=== PATIENT | male | born 1995 | race African-American/Black ===

== ENCOUNTER 2023-05-13 16:56 | Emergency (ER) | payer BC, SELFPAY ==
--- NOTE | ~2023-05-13 | CT_ITS ---
EXAMINATION: CT abdomen pelvis w con DATE: 05/13/2023 19:17 INDICATION: Abdominal pain, nausea and diarrhea TECHNIQUE: Computed tomography (CT) of the abdomen and pelvis was performed with 100 mL Omnipaque-350 intravenous contrast. Automated exposure control and iterative reconstruction technique were employe d. The dose-length product was 1139.05 mGy-cm. COMPARISON: None FINDINGS: Lung bases are clear. Heart size is normal. No pericardial or pleural effusion. Liver, gallbladder, s pleen, pancreas, bilateral adrenal glands and kidneys are normal. Appendix is normal. There is fluid scattered throughout much of the central small bowel without bria dilation and without discrete zambrano sition point to suggest obstruction which could be seen with an ileus or gastroenteritis. No abnormal bowel wall thickening. Bladder is normal. No free intraperitoneal gas or fluid. No pathologically en larged abdominal or pelvic lymphadenopathy. Bones are unremarkable. IMPRESSION: 1. Fluid throughout multiple nondilated loops of small bowel which could be related to ileus or gastr oenteritis. Reviewed, dictated and finalized at location A. RIDE OPERATOR IMPRESSION: 1. Fluid throughout multiple nondilated loops of small bowel which could be rel ated to ileus or gastroenteritis.
[2023-05-13 17:03] VITALS: BP 161/92; PULSE 97; RESP 18; TEMP 36.8; O2SAT 100
[2023-05-13 17:38] LABS: Basophils Percent Auto 0.3 % (0.2-1.2); Eosinophils Absolute Auto 0.2 K/mm3 (0-0.3); Hematocrit 53.9 % (42.0-52.0); Hemoglobin 16.9 g/dL (14.0-18.0); Immature Granulocyte Absolute 0.02 K/mm3 (0.00-0.031); Immature Granulocyte Percent A 0.2 % (0-0.5); Lymphocytes Absolute Auto 1.63 K/mm3 (0.9-3.2); Lymphocytes Percent Auto 17.2 % (18.3-44.2); Mean Corpuscular HGB Conc 31.4 g/dl (32-36); Mean Corpuscular Hemoglobin 28.2 pg (26-34); Mean Platelet Volume 9.3 fl (7.4-10.4); Monocytes Absolute Auto 0.6 K/mm3 (0.1-0.6); Monocytes Percent Auto 6.7 % (2.6-8.5); Neutrophils Percent Auto 73.6 % (45.5-73.1); Platelet Count Result 257 k/mm3 (150-375); Red Blood Count 5.99 M/mm3 (4.6-6.20); Red Cell Distribution Width 12.5 % (11.5-14.5); White Blood Count 9.5 K/mm3 (4.5-10.0)
[2023-05-13 17:48] LABS: Alanine Aminotransferase 51 U/L (6-50); Alkaline Phosphatase 101 U/L (38-126); Anion Gap 10 mmol/L (8-16); Aspartate Amino Transferase 37 U/L (17-59); Blood Urea Nitrogen 11 mg/dL (9-20); Calcium 9.8 mg/dL (8.4-10.2); Carbon Dioxide 26 mmol/L (22-30); Chloride 101 mmol/L (98-107); Estimated CRCL calculation 119 ml/min; Estimated Glomerular Filt Rate > 60; Glucose 103 mg/dL (65-110); Lipase 57 U/L (23-300); Potassium 4.1 mmol/L (3.4-5.0); Sodium 137 mmol/L (137-145)
--- NOTE | 2023-05-13 18:38 | ED.ABDPAIN ---
HPI - Abdominal Pain General Chief Complaint: Abdominal Pain <Edelmira Allen PA-C - Last Filed: 05/14/23 09:15> Stated Complaint: abd pain <Edelmira Allen PA-C - Last Filed: 05/14/23 09:15> Time Seen by Provider: 05/13/23 21:06 <Edelmira Allen PA-C - Last Filed: 05/14/23 09:15> Source: patient <Edelmira Allne PA-C - Last Filed: 05/14/23 09:15> Mode of arrival: ambulatory <Edelmira Allen PA-C - Last Filed: 05/14/23 09:15> Limitations: no limitations <Edelmira Allen PA-C - Last Filed: 05/14/23 09:15> History of Present Illness HPI narrative: This is a 28 year old male that presents to the ER for abdominal pain and nausea. Ongoing since this afternoon. Also reports some diarrhea. Denies fever or vomiting. <Edelmira Allen PA-C - Last Filed: 05/14/23 09:15> Related Data Allergies/Adverse Reactions: Allergies Allergy/AdvReac Type Severity Reaction Status Date / Time No Known Allergies Allergy Verified 05/13/23 17:03 <Edelmira Allen PA-C - Last Filed: 05/14/23 09:15> Review of Systems Review of Systems: CONSTITUTIONAL: Denies fever GASTROINTESTINAL: Reports abdominal pain, nausea, and diarrhea. Denies vomiting <Edelmira Allen PA-C - Last Filed: 05/14/23 09:15> All systems reviewed & are unremarkable except as noted in HPI and below <Edelmira Allen PA-C - Last Filed: 05/14/23 09:15> [facility] Past Medical History Medical History: Medical History (Updated 05/14/23 @ 00:00 by Jordyn Hernandez) No active medical problems <Edelmira Allen PA-C - Last Filed: 05/14/23 09:15> Social History Social History: Social History (Updated 05/13/23 @ 18:40 by Edelmira Allen PA-C) Substance use: never <Edelmira Allen PA-C - Last Filed: 05/14/23 09:15> Exam Narrative: GENERAL: Well-appearing, well-nourished, and in no acute distress. HEAD: Normocephalic, atraumatic. EYES: EOMI. CHEST: Clear to auscultation. No respiratory distress. No wheezes rales or rhonchi HEART: Regular rate and rhythm. No murmur heard. Normal peripheral pulses. ABDOMEN: Soft, nondistended, normal active bowel sounds. Tender to palpation in the epigastrium, without guarding EXTREMITIES: Normal range of motion. No edema. SKIN: Warm, dry, no rash. NEURO: No focal deficits. Alert and oriented x3. PSYCH: Normal mood and affect <Edelmira Allen PA-C - Last Filed: 05/14/23 09:15> Course Course Emergency Course: Re-evaluation 2210: Feeling much better after Bentyl and Toradol. Abdomen remains soft. Vitals are stable. Tachycardia improved with fluids. stable for discharge home. <Artem Palacios PA-C - Last Filed: 05/14/23 01:35> Vital Signs Vital signs: Vital Signs Temperature 98.3 F 05/13/23 17:03 Pulse Rate 97 05/13/23 17:03 Respiratory Rate 18 05/13/23 17:03 Blood Pressure 161/92 H 05/13/23 17:03 Pulse Oximetry 100 05/13/23 17:03 Temperature 98.3 F 05/13/23 17:03 Pulse Rate 93 05/13/23 22:23 Respiratory Rate 22 H 05/13/23 22:23 Blood Pressure 125/59 L 05/13/23 22:23 Pulse Oximetry 100 05/13/23 22:23 <Edelmira Allen PA-C - Last Filed: 05/14/23 09:15> Vital Signs Temperature 98.3 F 05/13/23 17:03 Pulse Rate 97 05/13/23 17:03 Respiratory Rate 18 05/13/23 17:03 Blood Pressure 161/92 H 05/13/23 17:03 Pulse Oximetry 100 05/13/23 17:03 Temperature 98.3 F 05/13/23 17:03 Pulse Rate 93 05/13/23 22:23 Respiratory Rate 22 H 05/13/23 22:23 Blood Pressure 125/59 L 12/11/23 22:23 Pulse Oximetry 100 05/13/23 22:23 <Artem Palacios PA-C - Last Filed: 05/14/23 01:35> MDM - Abdominal Pain MDM Narrative Medical decision making narrative: Medical screening exam performed by advanced practice provider in triage. This is a 28-year-old male who presents to the ED with chief complaint of diffuse abdominal pain. Also having diarrhea and vomiting. Vitals are normal.
[2023-05-13] MEDS: ONDANSETRON INJ 4 MG/2 ML VIAL IV PUSH (18:49)
[2023-05-13] MEDS: PANTOPRAZOLE SODIUM IV 40 MG VIAL IV PUSH (18:50)
[2023-05-13 19:21] LABS: Appearance Urine Clear (Clear); Bacteria Urine None Seen /hpf; Bilirubin Urine Negative (Negative); Blood Urine Trace (Negative); Color Urine Yellow (Yellow); Glucose Urine UA Negative (Negative); Ketones Urine Negative (Negative); Leukocyte Esterase Ur Negative LEU/UL (Negative); Nitrate Urine Negative (Negative); Non Pathogenic Casts 0-2; Protein Urine Negative (Negative); Squamous Epithelial Cell Urine None seen /hpf (Few); WBC Urine 0-5 /hpf
[2023-05-13 19:25] LABS: Add Urine Microscopic? YES
[2023-05-13] MEDS: SODIUM CHLORIDE 0.9% IV 1,000 ML 999 ML IV CONT (21:10)
[2023-05-13] MEDS: DICYCLOMINE HCL 10 MG CAPSULE PO (21:38)
[2023-05-13] MEDS: KETOROLAC 15 MG/ML VIAL (*BKC) IV PUSH (21:38)
[2023-05-13 21:39] VITALS: BP 125/70; PULSE 108; RESP 15; O2SAT 100
[2023-05-13 22:23] VITALS: BP 125/59; PULSE 93; RESP 22; O2SAT 100
== END 2023-05-13 22:25 | disposition home or self-care (01) ==
PROVIDERS: Emergency Medicine; Emergency Provider Physician Assistant; PCP Nurse Practitioner Family
DX: K52.9 Noninfective gastroenteritis and colitis, unspecified (principal)
CPT/HCPCS: 36415; 74177; 80053; 81001; 83690; 85025; 96361; 96374; 96375; 99284; A9270; C9113; J1885; J2405; J7030; Q9967

== ENCOUNTER → 2024-07-22 15:43 | Outpatient (CLI) | payer BC, SELFPAY ==
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
== END ==
LOC: EXPCRAD 15:47
PROVIDERS: PCP Nurse Practitioner Family; Visit Provider Nurse Practitioner Family
DX: M47.814 Spondylosis without myelopathy or radiculopathy, thoracic region (principal)
CPT/HCPCS: 72072